=== PATIENT | male | born 1950 | race African-American/Black ===

== ENCOUNTER 2021-09-01 16:42 | Inpatient (IN) | payer MEDICARE, MEDICAID ==
[~2021-09-01] VITALS: Ht 175.3 cm; Wt 134.7 kg
[2021-09-01] MEDS: ENOXAPARIN 40MG/0.4ML SYR SUBCUT SCH (00:13)
[~2021-09-01 16:42] MED LIST: CLOP75TA15 PO; RANO500T3 PO
[2021-09-01 17:53] LABS: HEMATOCRIT. 35.7 % (42.0-52.0); MEAN CORPUSCULAR HEMOGLOBIN 31.2 pg (28.0-32.0); MEAN CORPUSCULAR VOLUME 92.7 fL (80.0-94.0); MEAN PLATELET VOLUME 8.6 fl (7.4-10.4); PLATELET 302 x1000/uL (130-400); RED BLOOD CELL COUNT 3.85 mill/uL (4.7-6.1); RED CELL DISTRIBUTION WIDTH 20.1 % (11.6-14.6)
[2021-09-01 18:04] LABS: CHLORIDE 107 mEq/L (98-107)
[2021-09-01 18:59] LABS: PLATELET ESTIMATE NORMAL
[2021-09-01] MEDS ORDERED: MORPHINE SULFATE 4 MG/ML CPJ (NOT FOR IM USE) IV NR (19:00)
[2021-09-01] MEDS ORDERED: POTASSIUM CHLORIDE 20MEQ TABLET SR PO NR ×2 (19:00→22:30)
[2021-09-01] MEDS ORDERED: ZOLPIDEM TARTRATE 5MG TABLET PO PRN (22:30)
[2021-09-01] MEDS ORDERED: GUAIFENESIN 200MG/10ML SUGAR FREE UDC PO PRN (22:30)
[2021-09-01] MEDS ORDERED: ACETAMINOPHEN 325MG TABLET PO PRN (22:30)
[2021-09-01] MEDS ORDERED: MAGNESIUM/ALUMINUM HYDROXIDE/SIMETHICONE 30ML UDC PO PRN (22:30)
[2021-09-01] MEDS ORDERED: DOCUSATE SODIUM 100MG CAPSULE PO PRN (22:30)
[2021-09-01] MEDS ORDERED: NITROGLYCERIN 0.4MG TABLET SL SL PRN (22:30)
[2021-09-01] MEDS ORDERED: IPRATROPIUM/ALBUTEROL 0.5-3(2.5)MG/3ML NEB NEB PRN (22:30)
[2021-09-01] MEDS ORDERED: ONDANSETRON HCL 4MG/2ML INJ IV PRN (22:30)
[2021-09-02] MEDS: ACETAMINOPHEN 325MG TABLET PO PRN ×3 (04:31→22:27)
[2021-09-02] MEDS: CARVEDILOL 3.125 MG TABLET PO SCH ×2 (05:36→18:00)
[2021-09-02] MEDS: FUROSEMIDE 40MG/4ML VIAL IVP SCH ×2 (07:44→17:15)
[2021-09-02] MEDS: FAMOTIDINE 20MG TABLET PO SCH ×2 (09:39→20:19)
[2021-09-02] MEDS: CLOPIDOGREL 75MG TABLET PO SCH (09:39)
[2021-09-02 10:34] LABS: OPIATES URINE SCREEN NEGATIVE (NEGATIVE)
[2021-09-02 10:35] LABS: *AMPHETAMINES SCREEN URINE NEGATIVE (NEGATIVE); *BARBITURATES SCREEN URINE NEGATIVE (NEGATIVE); *BENZODIAZEPINES SCREEN URINE NEGATIVE (NEGATIVE); *COCAINE SCREEN URINE NEGATIVE (NEGATIVE); CANNABINOID URINE SCREEN NEGATIVE (NEGATIVE); PHENCYCLIDINE URINE SCREEN NEGATIVE (NEGATIVE)
[2021-09-02 10:36] LABS: METHADONE URINE SCREEN NEGATIVE (NEGATIVE)
[2021-09-02 12:00] VITALS: BP 148/103
[2021-09-02 15:34] VITALS: BP 148/103
[2021-09-02 16:00] VITALS: BP 165/86
[2021-09-02 17:28] LABS: HEMATOCRIT. 38.2 % (42.0-52.0); HEMOGLOBIN. 12.9 g/dL (14.0-18.0); MEAN CORPUSCULAR HEMOGLOBIN 31.7 pg (28.0-32.0); MEAN CORPUSCULAR VOLUME 93.8 fL (80.0-94.0); MEAN PLATELET VOLUME 8.7 fl (7.4-10.4); PLATELET 332 x1000/uL (130-400); RED BLOOD CELL COUNT 4.08 mill/uL (4.7-6.1); RED CELL DISTRIBUTION WIDTH 20.3 % (11.6-14.6)
[2021-09-02 17:35] LABS: CHLORIDE 106 mEq/L (98-107)
[2021-09-02 17:40] LABS: ETHANOL BLOOD < 10 mg/dL
[2021-09-02 17:42] LABS: PHOSPHORUS 3.1 mg/dL (2.5-4.9)
[2021-09-02 17:44] LABS: TOTAL IRON BINDING CAPACITY 183 ug/dL (250-450)
[2021-09-02 17:46] LABS: CREATINE KINASE 41 IU/L (39-308)
[2021-09-02 17:47] LABS: CREATINE KINASE MB FRACTION < 1.0 ng/mL (0.5-3.6)
[2021-09-02 18:01] LABS: FOLIC ACID (FOLATE) SERUM >20 ng/mL ng/mL (>5.38)
[2021-09-02 18:12] LABS: VITAMIN B12 SERUM 1096 pg/mL (211-911)
[2021-09-02 19:49] LABS: PLATELET ESTIMATE NORMAL
[2021-09-02 20:00] VITALS: BP 128/83
[2021-09-02] MEDS: ENOXAPARIN 40MG/0.4ML SYR SUBCUT SCH (20:20)
[2021-09-03] VITALS: BP 135/84
[2021-09-03 00:20] LABS: CREATINE KINASE 32 IU/L (39-308)
[2021-09-03 00:21] LABS: CREATINE KINASE MB FRACTION < 1.0 ng/mL (0.5-3.6)
[2021-09-03] MEDS: CLONIDINE 0.1MG TABLET PO PRN ×2 (03:23→12:29)
[2021-09-03 04:00] VITALS: BP 161/85
[2021-09-03] MEDS: FUROSEMIDE 40MG/4ML VIAL IVP SCH ×2 (06:33→17:01)
[2021-09-03] MEDS: CARVEDILOL 3.125 MG TABLET PO SCH ×2 (06:33→17:01)
[2021-09-03 08:00] VITALS: BP 169/92
[2021-09-03] MEDS: FAMOTIDINE 20MG TABLET PO SCH ×2 (08:03→23:10)
[2021-09-03] MEDS: CLOPIDOGREL 75MG TABLET PO SCH (08:03)
[2021-09-03 12:00] VITALS: BP 162/87
[2021-09-03] MEDS: GABAPENTIN 100MG CAPSULE PO SCH ×2 (13:48→23:10)
[2021-09-03 16:00] VITALS: BP 146/78
[2021-09-03 20:00] VITALS: BP 132/89
[2021-09-03] MEDS: ENOXAPARIN 40MG/0.4ML SYR SUBCUT SCH (23:09)
[2021-09-04] VITALS: BP 136/88
[2021-09-04 04:00] VITALS: BP 122/83
[2021-09-04] MEDS: CARVEDILOL 3.125 MG TABLET PO SCH ×2 (04:26→17:42)
[2021-09-04] MEDS: GABAPENTIN 100MG CAPSULE PO SCH ×3 (04:26→21:04)
[2021-09-04] MEDS: ACETAMINOPHEN 325MG TABLET PO PRN ×3 (04:27→14:14)
[2021-09-04 08:00] VITALS: BP 130/84
[2021-09-04] MEDS: ENOXAPARIN 40MG/0.4ML SYR SUBCUT SCH ×2 (09:39→21:02)
[2021-09-04] MEDS: FAMOTIDINE 20MG TABLET PO SCH ×2 (09:40→21:03)
[2021-09-04] MEDS: FUROSEMIDE 40MG TABLET PO SCH ×2 (09:40→17:41)
[2021-09-04] MEDS: CLOPIDOGREL 75MG TABLET PO SCH (09:40)
[2021-09-04 12:00] VITALS: BP 128/76
[2021-09-04 16:00] VITALS: BP 142/86
[2021-09-04 20:00] VITALS: BP 139/85
[2021-09-04] MEDS: CLONIDINE 0.1MG TABLET PO PRN (21:03)
[2021-09-05] MEDS: CARVEDILOL 3.125 MG TABLET PO SCH ×2 (05:17→17:41)
[2021-09-05] MEDS: GABAPENTIN 100MG CAPSULE PO SCH ×3 (05:18→21:01)
[2021-09-05 08:00] VITALS: BP 135/80
[2021-09-05] MEDS: FAMOTIDINE 20MG TABLET PO SCH ×2 (10:03→21:02)
[2021-09-05] MEDS: ENOXAPARIN 40MG/0.4ML SYR SUBCUT SCH ×2 (10:03→21:02)
[2021-09-05] MEDS: FUROSEMIDE 40MG TABLET PO SCH ×2 (10:03→17:40)
[2021-09-05] MEDS: CLOPIDOGREL 75MG TABLET PO SCH (10:04)
[2021-09-05 12:00] VITALS: BP 115/80
[2021-09-05 16:00] VITALS: BP 138/85
[2021-09-05 20:00] VITALS: BP 129/88
[2021-09-06 04:00] VITALS: BP 114/82
[2021-09-06] MEDS: CARVEDILOL 3.125 MG TABLET PO SCH ×2 (05:55→17:48)
[2021-09-06] MEDS: GABAPENTIN 100MG CAPSULE PO SCH (05:55)
[2021-09-06 08:00] VITALS: BP 138/84
[2021-09-06] MEDS: FUROSEMIDE 40MG TABLET PO SCH ×2 (10:06→17:47)
[2021-09-06] MEDS: CLOPIDOGREL 75MG TABLET PO SCH (10:06)
[2021-09-06] MEDS: FAMOTIDINE 20MG TABLET PO SCH ×2 (10:06→21:03)
[2021-09-06] MEDS: ENOXAPARIN 40MG/0.4ML SYR SUBCUT SCH ×2 (10:07→21:04)
[2021-09-06] MEDS: GABAPENTIN 400MG CAPSULE PO SCH ×2 (13:41→21:03)
[2021-09-06 16:30] VITALS: BP 113/80
[2021-09-06] MEDS: ACETAMINOPHEN 325MG TABLET PO PRN (17:47)
[2021-09-06 20:00] VITALS: BP 127/74
[2021-09-07] VITALS: BP 130/80
[2021-09-07 04:00] VITALS: BP 138/88
[2021-09-07] MEDS: CARVEDILOL 3.125 MG TABLET PO SCH ×2 (05:50→18:01)
[2021-09-07] MEDS: GABAPENTIN 400MG CAPSULE PO SCH ×3 (05:50→21:02)
[2021-09-07 08:00] VITALS: BP 119/78
[2021-09-07] MEDS: FAMOTIDINE 20MG TABLET PO SCH ×3 (09:00→21:03)
[2021-09-07] MEDS: ENOXAPARIN 40MG/0.4ML SYR SUBCUT SCH ×2 (09:27→21:03)
[2021-09-07] MEDS: CLOPIDOGREL 75MG TABLET PO SCH (09:27)
[2021-09-07] MEDS: ACETAMINOPHEN 325MG TABLET PO PRN (09:27)
[2021-09-07] MEDS: FUROSEMIDE 40MG TABLET PO SCH ×2 (09:27→18:00)
[2021-09-07 12:00] VITALS: BP 142/88
[2021-09-07 16:51] VITALS: BP 120/90
[2021-09-07 20:00] VITALS: BP 110/68
[2021-09-08] VITALS: BP 121/75
[2021-09-08 04:00] VITALS: BP 131/80
[2021-09-08] MEDS: FUROSEMIDE 40MG TABLET PO SCH (06:22)
[2021-09-08] MEDS: GABAPENTIN 400MG CAPSULE PO SCH (06:22)
[2021-09-08] MEDS: CARVEDILOL 3.125 MG TABLET PO SCH (06:23)
[2021-09-08 08:00] VITALS: BP 143/88
[2021-09-08] MEDS: ENOXAPARIN 40MG/0.4ML SYR SUBCUT SCH (08:54)
[2021-09-08] MEDS: FAMOTIDINE 20MG TABLET PO SCH (08:54)
[2021-09-08] MEDS: CLOPIDOGREL 75MG TABLET PO SCH (08:54)
[2021-09-08 12:00] VITALS: BP 122/79
[2021-09-08] MEDS ORDERED: GABAPENTIN 300MG CAPSULE PO SCH (14:00)
[2021-09-08 14:57] VITALS: BP 122/79
[2021-09-08 16:00] VITALS: BP 120/72
== END 2021-09-08 17:52 | DRG 205 ==
LOC: ER 16:42 → SUPCPDRO 22:15 → MICUSO 22:20 → 8WST 09-02 12:32 → 6EST 09-07 16:26
PROVIDERS: ADMIT Internal Medicine; ATTEND Internal Medicine
DX: M94.0 Chondrocostal junction syndrome [Tietze] (principal); I50.43 Acute on chronic combined systolic (congestive) and diastolic (congestive) heart failure; E43 Unspecified severe protein-calorie malnutrition; Z68.41 Body mass index [BMI] 40.0-44.9, adult; I11.0 Hypertensive heart disease with heart failure; D63.8 Anemia in other chronic diseases classified elsewhere; E87.6 Hypokalemia; F17.210 Nicotine dependence, cigarettes, uncomplicated; Z20.822 Contact with and (suspected) exposure to COVID-19; I25.10 Atherosclerotic heart disease of native coronary artery without angina pectoris; J44.9 Chronic obstructive pulmonary disease, unspecified; Z95.5 Presence of coronary angioplasty implant and graft; Z88.8 Allergy status to other drugs, medicaments and biological substances; Z71.6 Tobacco abuse counseling
CPT/HCPCS: 36415; 71045; 80053; 80305; 80320; 82550; 82553; 82607; 82746; 83540; 83550; 83735; 83880; 84100; 84443; 84484; 85025; 87426; 93005; 93970; 94640; 97110; 97161; 97166; 99285; J1650; J1940; J2270; G0480

== ENCOUNTER 2021-09-11 14:44 | Inpatient (IN) | payer MEDICARE, MEDICAID ==
[~2021-09-11] VITALS: Ht 175.3 cm; Wt 127.0 kg
[2021-09-11] MEDS ORDERED: ACETAMINOPHEN 325MG TABLET PO ONE (16:00)
[2021-09-11] MEDS ORDERED: KETOROLAC 15MG/ML VIAL IV ONE (17:15)
[2021-09-11 20:57] LABS: BASOPHILS % 0.3 % (0.0-2.0); EOSINOPHILS % 8.8 % (0.0-5.0); HEMOGLOBIN. 12.6 g/dL (14.0-18.0); LYMPHOCYTES % 14.6 % (20.0-50.0); MEAN CORPUSCULAR HEMOGLOBIN 30.3 pg (28.0-32.0); MEAN CORPUSCULAR VOLUME 91.7 fL (80.0-94.0); MEAN PLATELET VOLUME 9.1 fl (7.4-10.4); MONOCYTES % 14.2 % (2.0-8.0); NEUTROPHILS % 62.1 % (40.0-76.0); PLATELET 372 x1000/uL (130-400); RED BLOOD CELL COUNT 4.14 mill/uL (4.7-6.1); RED CELL DISTRIBUTION WIDTH 19.6 % (11.6-14.6)
[2021-09-11 21:03] LABS: CHLORIDE 104 mEq/L (98-107)
[2021-09-11] MEDS ORDERED: MORPHINE SULFATE 4 MG/ML CPJ (NOT FOR IM USE) IV ONE (21:45)
[2021-09-12] MEDS ORDERED: ENOXAPARIN 120MG/0.8ML SYR SUBCUT ONE (00:15)
[2021-09-12] MEDS ORDERED: CLONIDINE 0.1MG TABLET PO PRN (05:00)
[2021-09-12] MEDS ORDERED: GUAIFENESIN 200MG/10ML SUGAR FREE UDC PO PRN (05:00)
[2021-09-12] MEDS ORDERED: MAGNESIUM/ALUMINUM HYDROXIDE/SIMETHICONE 30ML UDC PO PRN (05:00)
[2021-09-12] MEDS ORDERED: IPRATROPIUM/ALBUTEROL 0.5-3(2.5)MG/3ML NEB HHN PRN (05:00)
[2021-09-12] MEDS ORDERED: ZOLPIDEM TARTRATE 5MG TABLET PO PRN (05:00)
[2021-09-12] MEDS ORDERED: ACETAMINOPHEN 325MG TABLET PO PRN ×2 (05:00)
[2021-09-12] MEDS ORDERED: ONDANSETRON HCL 4MG/2ML INJ IV PRN (05:00)
[2021-09-12] MEDS: SODIUM CHLORIDE 0.9% INJ 3ML FLUSH IVF SCH ×2 (05:26→21:50)
[2021-09-12] MEDS ORDERED: IOHEXOL-350 100 ML BOTTLE ONE (05:46)
[2021-09-12] MEDS: CARVEDILOL 3.125 MG TABLET PO SCH ×2 (09:00→21:50)
[2021-09-12] MEDS: MORPHINE SULFATE 4 MG/ML CPJ (NOT FOR IM USE) IV PRN ×2 (09:20→16:10)
[2021-09-12] MEDS: CLOPIDOGREL 75MG TABLET PO SCH (09:40)
[2021-09-12] MEDS: DIPHENHYDRAMINE 50MG/ML VIAL IV PRN (16:10)
[2021-09-12 20:00] VITALS: BP 141/87
[2021-09-12 20:20] VITALS: BP 141/87
[2021-09-12] MEDS: MORPHINE SULFATE 2 MG/ML CPJ (NOT FOR IM USE) IV PRN (22:08)
[2021-09-12] MEDS ORDERED: NALOXONE HCL 0.4MG/ML VIAL IV PRN (22:15)
[2021-09-13] VITALS: BP 154/86
[2021-09-13] MEDS ORDERED: CARV3.1242 PO (01:35)
[2021-09-13] MEDS ORDERED: CLOP75TA33 PO (01:35)
[2021-09-13] MEDS ORDERED: FAMO20TA8 PO (01:35)
[2021-09-13 04:00] VITALS: BP 145/70
[2021-09-13] MEDS: SODIUM CHLORIDE 0.9% INJ 3ML FLUSH IVF SCH ×3 (05:04→21:09)
[2021-09-13] MEDS: MORPHINE SULFATE 2 MG/ML CPJ (NOT FOR IM USE) IV PRN ×4 (07:46→23:55)
[2021-09-13 08:00] VITALS: BP 149/72
[2021-09-13] MEDS: CARVEDILOL 3.125 MG TABLET PO SCH ×2 (08:46→21:09)
[2021-09-13] MEDS: CLOPIDOGREL 75MG TABLET PO SCH (08:46)
[2021-09-13 12:24] VITALS: BP 130/87
[2021-09-13 16:34] VITALS: BP 142/86
[2021-09-13 17:27] LABS: CHLORIDE 106 mEq/L (98-107)
[2021-09-13 20:00] VITALS: BP 124/73
[2021-09-14] VITALS: BP 146/90
[2021-09-14] MEDS: DIPHENHYDRAMINE 50MG/ML VIAL IV PRN ×2 (02:06→18:45)
[2021-09-14 04:00] VITALS: BP_SYST 131; BP_SYST 150; BP_DIAS 73; BP_DIAS 74
[2021-09-14] MEDS: SODIUM CHLORIDE 0.9% INJ 3ML FLUSH IVF SCH ×3 (05:35→21:25)
[2021-09-14 08:04] VITALS: BP 122/98
[2021-09-14] MEDS: CARVEDILOL 3.125 MG TABLET PO SCH ×2 (08:07→21:26)
[2021-09-14] MEDS: CLOPIDOGREL 75MG TABLET PO SCH (08:07)
[2021-09-14] MEDS: MORPHINE SULFATE 2 MG/ML CPJ (NOT FOR IM USE) IV PRN ×4 (08:14→21:26)
[2021-09-14 12:14] VITALS: BP 153/96
[2021-09-14 20:00] VITALS: BP 166/88
[2021-09-15] VITALS: BP 142/80
[2021-09-15 04:00] VITALS: BP 124/97
[2021-09-15] MEDS: SODIUM CHLORIDE 0.9% INJ 3ML FLUSH IVF SCH (05:31)
[2021-09-15] MEDS: DIPHENHYDRAMINE 50MG/ML VIAL IV PRN (05:31)
[2021-09-15] MEDS: MORPHINE SULFATE 2 MG/ML CPJ (NOT FOR IM USE) IV PRN ×2 (05:31→11:22)
[2021-09-15 08:06] VITALS: BP 129/81
[2021-09-15] MEDS: CLOPIDOGREL 75MG TABLET PO SCH (09:17)
[2021-09-15] MEDS: CARVEDILOL 3.125 MG TABLET PO SCH (09:18)
[2021-09-15 10:43] VITALS: BP 129/81
[2021-09-15 12:20] VITALS: BP 124/87
== END 2021-09-15 13:36 | DRG 313 ==
LOC: ER 14:44 → 6WST 09-12 01:28 → EDBEDREQSVC 09-12 07:30 → EDBEDREQTM 09-12 07:30 → ENRESERV 09-12 17:39 → 6WST 09-12 20:00
PROVIDERS: ADMIT Internal Medicine; ATTEND Internal Medicine
DX: R07.89 Other chest pain (principal); I50.22 Chronic systolic (congestive) heart failure; G62.9 Polyneuropathy, unspecified; Z20.822 Contact with and (suspected) exposure to COVID-19; E87.5 Hyperkalemia; I11.0 Hypertensive heart disease with heart failure; I25.10 Atherosclerotic heart disease of native coronary artery without angina pectoris; J44.9 Chronic obstructive pulmonary disease, unspecified; E11.9 Type 2 diabetes mellitus without complications; Z86.718 Personal history of other venous thrombosis and embolism; Z95.5 Presence of coronary angioplasty implant and graft; Z79.899 Other long term (current) drug therapy; I25.2 Old myocardial infarction; Z86.711 Personal history of pulmonary embolism; Z88.6 Allergy status to analgesic agent; Z88.8 Allergy status to other drugs, medicaments and biological substances
CPT/HCPCS: 36415; 71045; 71275; 80048; 80053; 83880; 84484; 85025; 85379; 87426; 93005; 93970; 96374; 96375; 99285; J1200; J1650; J1885; J2270; Q9967